=== PATIENT | male | born 1935 | race Caucasian/White ===

== ENCOUNTER 2017-03-23 10:17 | Outpatient (CLI) | payer MEDICARE, BC ==
[~2017-03-23] VITALS: Ht 170.2 cm; Wt 83.6 kg
[~2017-03-23 10:17] MED LIST: BAYER CHEWABLE81 MG PO; CATAPRES0.2 MG; CATAPRES0.2 MG PO; CLEOCIN HCL300 MG PO; Cleocin PO; K-DUR20 MEQ PO; LISINOPRIL2.5 MG PO; NORCO 7.5/325 T1 TA1 PO; NORVASC10 MG; NORVASC10 MG PO; NORVASC5 MG PO; ZESTORETIC 20-1 EACH
[2017-03-23 11:27] VITALS: Ht 170.2 cm; Wt 83.6 kg
== END 2017-03-23 14:05 | disposition home or self-care (01) ==
LOC: D.OPS 10:17
DX: Z95.2 Presence of prosthetic heart valve (principal)

== ENCOUNTER 2017-03-24 06:31 | Emergency (ER) | payer MEDICARE, BC ==
[2017-03-23 11:27] VITALS: BMI 28.9
[2017-03-24 07:20] LABS: BASOPHILS 0.2 % (0-2); EOSINOPHILS 3.3 % (0-7); HEMATOCRIT 36.9 % (42.0-54.0); HEMOGLOBIN 12.3 g/dL (13.5-17.5); IMMATURE GRANULOCYTES 0.2 % (0-5); LYMPHOCYTES 13.1 % (15-50); MCH 31.9 pg (26.0-34.0); MCHC 33.3 g/dL (31.0-37.0); MCV 95.8 fL (80.0-100.0); MEAN PLATELET VOLUME 9.8 fL (7.4-10.4); MONOCYTES 4.2 % (2-11); PLATELET COUNT 221 10x3/uL (130-400); RBC 3.85 10x6/uL (4.20-6.10); RDW 12.9 % (11.5-14.5); WBC 9.2 10x3/uL (4.8-10.8)
[2017-03-24 07:30] LABS: ANION GAP 15.7 mmol/L (8-16); CALCIUM 8.4 mg/dL (8.5-10.1); CARBON DIOXIDE 24.1 mmol/L (21.0-32.0); CREATININE - SERUM 1.5 mg/dL (0.6-1.3); POTASSIUM - SERUM 3.8 mmol/L (3.5-5.1)
== END 2017-03-24 09:21 | disposition home or self-care (01) ==
LOC: D.ER 06:31
PROVIDERS: Family Medicine
DX: T36.95XA Adverse effect of unspecified systemic antibiotic, initial encounter (principal); Y92.89 Other specified places as the place of occurrence of the external cause; I10 Essential (primary) hypertension

== ENCOUNTER 2018-02-04 15:34 | Emergency (ER) | payer MEDICARE, BC ==
[2017-03-23 11:27] VITALS: BMI 28.9
== END 2018-02-04 16:51 | disposition home or self-care (01) ==
LOC: D.ER 15:34
DX: S80.812A Abrasion, left lower leg, initial encounter (principal); W26.9XXA Contact with unspecified sharp object(s), initial encounter; Y93.89 Activity, other specified; Y92.019 Unspecified place in single-family (private) house as the place of occurrence of the external cause

== ENCOUNTER 2018-03-23 08:06 | Outpatient (CLI) | payer MEDICARE, BC ==
[~2018-03-23] VITALS: Ht 177.8 cm; Wt 84.5 kg
[2018-03-23 09:25] VITALS: BP 147/86; Ht 177.8 cm; Wt 84.5 kg
== END 2018-03-23 11:05 ==
LOC: D.OPS 08:06
DX: Z95.2 Presence of prosthetic heart valve (principal)

== ENCOUNTER → 2019-01-03 10:02 | Outpatient (CLI) | payer MEDICARE, BC ==
[2018-03-23 09:25] VITALS: BMI 26.7
== END | disposition home or self-care (01) ==
LOC: D.RAD 10:02
PROVIDERS: ATTEND Family Medicine
DX: M54.12 Radiculopathy, cervical region (principal)

== ENCOUNTER → 2019-01-10 09:48 | Outpatient (CLI) | payer MEDICARE, BC ==
[2018-03-23 09:25] VITALS: BMI 26.7
== END | disposition home or self-care (01) ==
LOC: D.MRI 09:48
PROVIDERS: ATTEND Family Medicine
DX: M54.12 Radiculopathy, cervical region (principal)

== ENCOUNTER 2019-04-27 09:00 | Day surgery (SDC) | payer MEDICARE, BC ==
[2019-04-26 09:17] LABS: BASOPHILS 0.4 % (0-2); EOSINOPHILS 1.5 % (0-7); HEMOGLOBIN 12.4 g/dL (13.5-17.5); IMMATURE GRANULOCYTES 0.1 % (0-5); LYMPHOCYTES 21.4 % (15-50); MCH 31.9 pg (26.0-34.0); MCHC 34.4 g/dL (31.0-37.0); MCV 92.5 fL (80.0-100.0); MONOCYTES 9.4 % (2-11); NEUTROPHILS 67.2 % (40-80); PLATELET COUNT 192 10x3/uL (130-400); RBC 3.89 10x6/uL (4.20-6.10); RDW 13.1 % (11.5-14.5); WBC 7.1 10x3/uL (4.8-10.8)
[2019-04-26 09:19] LABS: ANION GAP 10.8 mmol/L (8-16); CALCIUM 8.7 mg/dL (8.5-10.1); CARBON DIOXIDE 28.7 mmol/L (21.0-32.0); CREATININE - SERUM 1.3 mg/dL (0.6-1.3); POTASSIUM - SERUM 4.5 mmol/L (3.5-5.1)
[2019-04-27] VITALS (10 sets, daily range): BP systolic 117–146; BP diastolic 51–74; Ht 170.2 cm; Wt 81.8 kg
[~2019-04-27] VITALS: Ht 170.2 cm; Wt 81.8 kg
[2019-04-28 01:24] VITALS: BP 147/71
[2019-04-28 05:44] VITALS: BP 150/80
[2019-04-28 09:04] VITALS: BP 169/88
--- NOTE | 2019-04-28 10:26 | NUR ---
PT ALERT X 4. BREATH SOUNDS CLEAR BILAT. IV TO RIGHT FOREARM, PATENT, DRESSING CDI. ABDOMEN DISTENDED AND FIRM. INCISION TO RIGHT SIDE OF ANTERIOR NECK, DRESSING CDI, NO TRACHEAL DEVIATION. PT REPORTING PAIN OF 2/10, WILL MONITOR. FAMILY AT BEDSIDE. BED LOW, CALL LIGHT IN REACH. NO OTHER NEEDS AT THIS TIME.
[2019-04-28] MEDS ORDERED: HYDROCODON-ACE1 EA10 PO (12:17)
--- NOTE | 2019-04-28 14:18 | NUR ---
DISCHARGE PAPERWORK SIGNED, ALL QUESTIONS ANSWERED. IV TO RIGHT FOREARM DC'D. ESCORTED OUT BY WHEELCHAIR.
--- NOTE | 2019-06-21 16:12 | OP ---
PATIENT NAME: CECIL POLLARD MEDICAL RECORD: [id number] :33 LOCATION:D.OPS ADMISSION DATE: SURGEON: MATHEUS DALAL MD DATE OF OPERATION: 04/27/2019 PREOPERATIVE DIAGNOSES: 1. 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 2. Left carpal tunnel syndrome. PROCEDURES: 1. Anterior cervical discectomy and fusion at C3-C4 with decompression of spinal cord, Zavation anterior cervical plate and screws, PEEK interbody cages. 2. Left carpal tunnel release. SURGEON: Matheus Dalal MD DESCRIPTION OF TECHNIQUE: After induction of general endotracheal anesthesia, the patient was positioned supine on the operating table. Neck was prepped and draped in usual sterile fashion as well as the left upper extremity. The left upper extremity was exsanguinated with an Kemar wrap. A tourniquet was inflated to 240 mmHg and then a skin incision was carried out from the wrist crease down to just medial to the palmar crease. A progressive dissection took place of the deep palmar fascia, fatty layers and then finally through the transverse carpal ligament in its entirety. The median nerve was identified and appeared to be decompressed as well. The tourniquet was deflated. Meticulous hemostasis was maintained throughout the wound. A vertical mattress style suture was used to reapproximate the skin edges. A sterile dressing was applied to the wound. Next, attention was turned to the cervical spine. The C3-C4 interspace was identified with fluoroscopic x-ray and a freer dissector. After infiltration of 1:100,000 epinephrine and 1% lidocaine, a transverse skin incision was carried out from the midline to the sternocleidomastoid muscle. The platysma was divided with Bovie cautery. Then using blunt and sharp dissection with Metzenbaum scissors, I proceeded in the avascular plane medial to the carotid sheath. The C3-C4 interspace was identified with fluoroscopic x-ray and a spinal needle. The longus colli muscles were elevated from bodies of C3 and C4. [place] distracting pins were placed by the C3 and C4. Disc space was incised under distraction. Disc material was removed with pituitary rongeurs and curettes. Osteophytes were drilled away posteriorly with a microscope and Midas Alex drill. The posterior longitudinal ligament was removed with Cloward rongeurs. Following this, the dura was decompressed as well. A PEEK interbody cage was placed in the disc space under distraction. Prior to this, it was filled with Abida bone allograft and stem cells. A Zavation anterior cervical plate and screws was used to span the C3-C4 interspace. Locking cams were tightened down over the screw heads. Good position of the hardware was confirmed with fluoroscopic x-ray. The platysma and subdermal layer closed with interrupted 3-0 Vicryl suture. The skin was closed with Steri-Strips and benzoin. A sterile dressing was applied to the cervical wound. The patient was awakened in good condition and taken to recovery. All counts were reported as correct. Estimated blood loss was minimal. TRANSINT:[id number] Voice Confirmation ID: [id number] DOCUMENT ID: [id number] OPERATIVE REPORT [id number] CECIL POLLARD, MATHEUS SAMANIEGO at 1612 CC: [id number] DICTATION DATE: 06/20/1946 MANAGER CARD: 06/20/19 1239 [facility] 04/28/19 [id number] [place] [address]
== END 2019-04-28 13:30 | disposition home or self-care (01) ==
LOC: D.OPS 09:00 → D.MS 09:00 → D.OPS 09:30 → D.PAN 09:30 → D.OPS 12:15 → D.PAN 12:15 → D.OPS 12:30 → D.MS 13:50 → D.OPS 04-28 13:30
PROVIDERS: Anesthesiology; ATTEND Neurological Surgery
DX: M50.01 Cervical disc disorder with myelopathy, high cervical region (principal); G56.02 Carpal tunnel syndrome, left upper limb

== ENCOUNTER → 2019-07-20 09:18 | Outpatient (CLI) | payer MEDICARE, BC ==
[2019-04-27 16:48] VITALS: BMI 28.2
[~2019-07-20 09:18] MED LIST changes: +HYDROCODON-ACE1 EA10 PO
== END | disposition home or self-care (01) ==
LOC: D.HCCECHO 09:18
PROVIDERS: ATTEND Internal Medicine Interventional Cardiology
DX: I35.1 Nonrheumatic aortic (valve) insufficiency (principal)

== ENCOUNTER 2019-10-04 05:10 | Day surgery (SDC) | payer MEDICARE, BC ==
[2019-10-02 12:39] LABS: BASOPHILS 0.3 % (0-2); EOSINOPHILS 0.7 % (0-7); HEMATOCRIT 42.8 % (42.0-54.0); HEMOGLOBIN 14.1 g/dL (13.5-17.5); IMMATURE GRANULOCYTES 0.3 % (0-5); LYMPHOCYTES 19.7 % (15-50); MCH 31.8 pg (26.0-34.0); MCHC 32.9 g/dL (31.0-37.0); MCV 96.4 fL (80.0-100.0); MEAN PLATELET VOLUME 9.9 fL (7.4-10.4); MONOCYTES 8.7 % (2-11); NEUTROPHILS 70.3 % (40-80); RBC 4.44 10x6/uL (4.20-6.10); RDW 13.3 % (11.5-14.5); WBC 7.3 10x3/uL (4.8-10.8)
[2019-10-02 12:40] LABS: PLATELET COUNT 239 10x3/uL (130-400)
[2019-10-02 12:57] LABS: ANION GAP 9.4 mmol/L (8-16); CALCIUM 8.6 mg/dL (8.5-10.1); CARBON DIOXIDE 32.2 mmol/L (21.0-32.0); CREATININE - SERUM 1.1 mg/dL (0.6-1.3); POTASSIUM - SERUM 4.6 mmol/L (3.5-5.1)
--- NOTE | 2019-10-03 16:10 | NUR ---
1600-office called for current h and p to be sent.
[~2019-10-04] VITALS: Ht 170.2 cm; Wt 81.6 kg
--- NOTE | ~2019-10-04 | OP ---
PATIENT NAME: CECIL POLLARD MEDICAL RECORD: [id number] :33 LOCATION:D.OPS ADMISSION DATE: SURGEON: MATHEUS CAMACHO MD DATE OF OPERATION: 10/04/2019 PREOPERATIVE DIAGNOSIS: Right carpal tunnel syndrome. POSTOPERATIVE DIAGNOSIS: Right carpal tunnel syndrome. PROCEDURE: Right carpal tunnel release. DESCRIPTION OF TECHNIQUE: After induction of general endotracheal anesthesia, the patient's right upper extremity was prepped and draped in usual sterile fashion. The extremity was exsanguinated with an Kemar wrap. A tourniquet was inflated to 250 mmHg. Following this, an incision was made in the palm just distal to the wrist crease and medial to the palmar crease. Progressive dissection took place through the deep palmar fascia until the flexor retinaculum was identified. This was incised with a #15 blade under direct vision and progressive layers until the median nerve was encountered. The flexor at retinaculum was then incised proximally and distally until the median nerve was completely decompressed under direct visualization. The tourniquet was deflated. Meticulous hemostasis was maintained throughout the wound. Wound was irrigated with copious amounts of Ancef irrigant solution. The skin was reapproximated with a vertical mattress style suture using a 3-0 nylon suture. The patient was awakened in good condition. All counts were reported as correct. Estimated blood loss was minimal. TRANSINT:[id number] Voice Confirmation ID: [id number] DOCUMENT ID: [id number] MATHEUS CAMACHO MD CC: [id number] DICTATION DATE: 10/11/191727 EXECUTIVE ASSOCIATE: 10/11/19 2353 [facility] 10/04/19 [place] [id number]
[2019-10-04] MEDS ORDERED: COMBIGAN OPHT DR5 ML EACH EYE (09:05)
[2019-10-04 09:06] VITALS: BP 151/69; Ht 170.2 cm; Wt 81.6 kg
[2019-10-04] MEDS ORDERED: HYDROCODON-ACE1 EA10 PO (10:30)
== END 2019-10-04 12:17 | disposition home or self-care (01) ==
LOC: D.OPS 05:10 → D.PAN 07:30 → D.OPS 09:45
PROVIDERS: Anesthesiology; ATTEND Neurological Surgery
DX: G56.01 Carpal tunnel syndrome, right upper limb (principal); I10 Essential (primary) hypertension; Z72.0 Tobacco use; E78.5 Hyperlipidemia, unspecified; I25.10 Atherosclerotic heart disease of native coronary artery without angina pectoris